=== PATIENT | female | born 1960 | race Asian ===

== ENCOUNTER 2019-10-26 06:15 | Day surgery (SDC) | payer OTHER ==
[~2019-10-26] VITALS: Ht 154.9 cm; Wt 56.7 kg
[2019-10-26 07:15] LABS: BASOPHILS % (AUTO) 0.5 % (0.0-2.0); EOSINOPHILS # (AUTO) 0.1 K/uL (0-0.4); EOSINOPHILS % (AUTO) 1.8 % (0.0-4.0); HEMATOCRIT 37.3 % (36-48); HEMOGLOBIN 12.5 g/dL (12.0-16.0); LYMPHOCYTES # (AUTO) 1.7 K/uL (2.5-16.5); LYMPHOCYTES % (AUTO) 35.2 % (20.5-51.1); MEAN CORPUSCULAR HEMOGLOBIN 30 pg (27-31); MEAN CORPUSCULAR HGB CONC 33 g/dL (33-37); MEAN CORPUSCULAR VOLUME 89.2 fL (80-94); MONOCYTES # (AUTO) 0.3 K/uL (0.8-1.0); MONOCYTES % (AUTO) 6.7 % (1.7-9.3); NEUTROPHILS # (AUTO) 2.7 K/uL (1.8-7.7); NEUTROPHILS % (AUTO) 55.8 % (42.2-75.2); PLATELET COUNT (AUTO) 226 K/uL (140-450); RED BLOOD CELL COUNT(AUTO) 4.19 MIL/uL (4.20-5.40); RED CELL DISTRIBUTION WIDTH 12.6 % (11.6-13.7); WHITE BLOOD COUNT (AUTO) 4.8 K/uL (4.8-10.8)
[2019-10-26 07:32] LABS: ALBUMIN 3.6 g/dL (3.4-5.0); ANION GAP 12.9 (8-16); CARBON DIOXIDE 28.5 mmol/L (21-32); CREATININE 0.9 mg/dL (0.6-1.3); POTASSIUM 3.4 mmol/L (3.5-5.1); TOTAL BILIRUBIN 1.8 mg/dL (0.0-1.0)
[2019-10-26] MEDS ORDERED: PROPOFOL 200 MG/20 ML VIAL IV ONE (08:45)
[2019-10-26] MEDS ORDERED: fentaNYL 0.05 MG/ML VIAL ONE (08:49)
[2019-10-26] MEDS ORDERED: MIDAZOLAM 2 MG/2 ML VIAL ONE (08:49)
[2019-10-26] MEDS ORDERED: ONDANSETRON 4 MG/2 ML VIAL IVP PRN (09:10)
[2019-10-26] MEDS ORDERED: MEPERIDINE 25 MG/ML SYR IVP PRN (09:10)
[2019-10-26] MEDS ORDERED: LACTATED RINGERS 1,000 ML IV SCH (09:10)
[2019-10-26] MEDS ORDERED: HYDROmorphone 1 MG/ML AMP IVP PRN (09:10)
== END 2019-10-26 10:45 | disposition home or self-care (01) ==
LOC: MDS 06:15 → MMU 06:29 → MDS 10:45
PROVIDERS: ATTEND Internal Medicine Gastroenterology
DX: K80.21 Calculus of gallbladder without cholecystitis with obstruction (principal); J45.909 Unspecified asthma, uncomplicated; Z79.899 Other long term (current) drug therapy
CPT/HCPCS: 36415; 43264; 71045; 74330; 80053; 84702; 85025; 93005; C1769; J7120; Q0092; J2250; J2704; J3010